=== PATIENT | female | born 1970 | race African-American/Black ===

== ENCOUNTER 2016-07-16 21:19 | Emergency (ER) | payer OTHER ==
[~2016-07-16] VITALS: Ht 170.2 cm; Wt 63.0 kg
[~2016-07-16 21:19] MED LIST: MULT-248 PO; PRED5 PO; QUET200T PO; VITS42.53 TP
[2016-07-16] MEDS ORDERED: QUET300T2 PO (22:03)
[2016-07-16] MEDS ORDERED: AMLO-512 PO (22:03)
[2016-07-16] MEDS ORDERED: HYDR25TA PO (22:03)
[2016-07-16] MEDS ORDERED: HYD50 PO (22:03)
[2016-07-16] MEDS ORDERED: CLON.2 PO (22:03)
[2016-07-16] MEDS ORDERED: ALBU8HFA IH (22:03)
[2016-07-17 00:26] VITALS: BP 118/78
== END 2016-07-17 00:26 | disposition home or self-care (01) ==
LOC: EMS 21:21
DX: L30.9 Dermatitis, unspecified (principal); G89.29 Other chronic pain; I10 Essential (primary) hypertension; F17.210 Nicotine dependence, cigarettes, uncomplicated; F19.90 Other psychoactive substance use, unspecified, uncomplicated; Z88.1 Allergy status to other antibiotic agents; Z88.0 Allergy status to penicillin; Z88.2 Allergy status to sulfonamides; Z88.8 Allergy status to other drugs, medicaments and biological substances
CPT/HCPCS: 99281

== ENCOUNTER 2016-08-05 04:15 | Emergency (ER) | payer OTHER ==
[~2016-08-05] VITALS: Ht 162.6 cm; Wt 54.5 kg
[~2016-08-05 04:15] MED LIST changes: +ALBU8HFA IH; +AMLO-512 PO; +CLON.2 PO; +HYD50 PO; +HYDR25TA PO; +QUET300T2 PO
[2016-08-05 04:22] VITALS: BP 118/65
== END 2016-08-05 05:42 | disposition left against medical advice (07) ==
LOC: EMS 04:17
DX: Z00.8 Encounter for other general examination (principal); J45.909 Unspecified asthma, uncomplicated; I10 Essential (primary) hypertension; F17.210 Nicotine dependence, cigarettes, uncomplicated; F19.90 Other psychoactive substance use, unspecified, uncomplicated; Z53.21 Procedure and treatment not carried out due to patient leaving prior to being seen by health care provider

== ENCOUNTER 2017-01-04 23:02 | Emergency (ER) | payer OTHER | END 2017-01-05 00:03 | disposition left against medical advice (07) | LOC: EMS 23:03 | DX: M79.89 Other specified soft tissue disorders (principal); Z53.21 Procedure and treatment not carried out due to patient leaving prior to being seen by health care provider ==

== ENCOUNTER 2017-01-05 00:25 | Emergency (ER) | payer OTHER ==
[~2017-01-05] VITALS: Ht 170.2 cm; Wt 50.0 kg
[2017-01-05] MEDS ORDERED: DOXYCYCLINE 100 MG CAPSULE PO ONE (05:00)
[2017-01-05] MEDS ORDERED: HYDROmorphone 2 MG/ML SYRINGE IM ONE (05:00)
[2017-01-05] MEDS ORDERED: ONDANSETRON HCL 4 MG/2 ML VIAL IM ONE (05:00)
[2017-01-05] MEDS ORDERED: BUPIVACAINE HCL/PF 0.25% 30 ML VIAL INJ ONE (05:00)
[2017-01-05] MEDS ORDERED: AmLODIPine BESYLATE 5 MG TABLET PO ONE (05:00)
[2017-01-05 06:19] VITALS: BP 149/84
== END 2017-01-05 06:26 | disposition home or self-care (01) ==
LOC: EMS 00:27
DX: L02.31 Cutaneous abscess of buttock (principal); I10 Essential (primary) hypertension; J45.909 Unspecified asthma, uncomplicated; F17.210 Nicotine dependence, cigarettes, uncomplicated; F19.90 Other psychoactive substance use, unspecified, uncomplicated; Z88.0 Allergy status to penicillin; Z88.2 Allergy status to sulfonamides; Z88.1 Allergy status to other antibiotic agents; Z88.8 Allergy status to other drugs, medicaments and biological substances
CPT/HCPCS: 10060; 87070; 87077; 87147; 87186; 87205; 96372; 99284; 99406; J1170; J2405; J3490

== ENCOUNTER 2017-02-01 06:46 | Emergency (ER) | payer OTHER ==
[~2017-02-01] VITALS: Ht 165.1 cm; Wt 61.4 kg
[2017-02-01] MEDS ORDERED: DOXYCYCLINE 100 MG CAPSULE PO ONE (07:15)
[2017-02-01 07:44] VITALS: BP 128/82
== END 2017-02-01 08:32 | disposition home or self-care (01) ==
LOC: EMS 06:48
DX: R10.9 Unspecified abdominal pain (principal); R21 Rash and other nonspecific skin eruption; F17.210 Nicotine dependence, cigarettes, uncomplicated; F15.10 Other stimulant abuse, uncomplicated; M32.9 Systemic lupus erythematosus, unspecified; I10 Essential (primary) hypertension; J45.909 Unspecified asthma, uncomplicated; M19.90 Unspecified osteoarthritis, unspecified site; F10.20 Alcohol dependence, uncomplicated; Z59.0 Homelessness; Z88.8 Allergy status to other drugs, medicaments and biological substances; Z88.0 Allergy status to penicillin; Z88.2 Allergy status to sulfonamides; Z88.1 Allergy status to other antibiotic agents; Z91.041 Radiographic dye allergy status
CPT/HCPCS: 99284

== ENCOUNTER 2017-02-11 11:44 | Emergency (ER) | payer OTHER ==
[~2017-02-11] VITALS: Ht 167.6 cm; Wt 52.0 kg
[2017-02-11] MEDS ORDERED: MUPIROCIN CALCIUM 2% 15 GM CREAM TP ONE (12:30)
[2017-02-11 13:23] VITALS: BP 106/74
== END 2017-02-11 13:40 | disposition home or self-care (01) ==
LOC: EMS 11:45
DX: L02.31 Cutaneous abscess of buttock (principal); J45.909 Unspecified asthma, uncomplicated; I10 Essential (primary) hypertension; F17.210 Nicotine dependence, cigarettes, uncomplicated; F19.90 Other psychoactive substance use, unspecified, uncomplicated; Z88.1 Allergy status to other antibiotic agents; Z88.0 Allergy status to penicillin; Z88.2 Allergy status to sulfonamides; Z88.8 Allergy status to other drugs, medicaments and biological substances
CPT/HCPCS: 99283

== ENCOUNTER 2017-02-26 00:27 | Emergency (ER) | payer OTHER ==
[~2017-02-26] VITALS: Ht 165.1 cm; Wt 52.0 kg
[~2017-02-26 00:27] MED LIST changes: -HYDR25TA PO; -QUET200T PO
[2017-02-26] MEDS ORDERED: OxyCODONE HCL/ACETAMINOPHEN 5-325 MG TABLET PO ONE (02:30)
[2017-02-26] MEDS ORDERED: CLINDAMYCIN HCL 150 MG CAPSULE PO ONE (02:30)
[2017-02-26] MEDS: LIDOCAINE HCL 1%/EPI 1:200,000/PF 10 ML VIAL INJ ONE ×2 (04:07→05:17)
[2017-02-26 05:30] VITALS: BP 122/80
== END 2017-02-26 05:58 | disposition home or self-care (01) ==
LOC: EMS 00:28
DX: L02.31 Cutaneous abscess of buttock (principal); J45.909 Unspecified asthma, uncomplicated; I10 Essential (primary) hypertension; F17.210 Nicotine dependence, cigarettes, uncomplicated; F19.90 Other psychoactive substance use, unspecified, uncomplicated; Z88.1 Allergy status to other antibiotic agents; Z88.0 Allergy status to penicillin; Z88.2 Allergy status to sulfonamides; Z88.8 Allergy status to other drugs, medicaments and biological substances
CPT/HCPCS: 99283; 99284; J3490

== ENCOUNTER 2017-03-30 00:43 | Emergency (ER) | payer OTHER ==
[~2017-03-30] VITALS: Ht 170.2 cm; Wt 54.5 kg
[2017-03-30 02:28] LABS: BASOPHILS % (AUTO) 0.3 % (0.0-2.0); EOSINOPHILS % (AUTO) 0.5 % (1.0-6.0); HEMATOCRIT 26.5 % (36-46); LYMPHOCYTES % (AUTO) 18.1 % (22.0-44.0); MEAN CORPUSCULAR HEMOGLOBIN 28.6 pg (26.0-34.0); MEAN CORPUSCULAR VOLUME 84 fL (80-100); MONOCYTES # (AUTO) 0.7 K/uL (0.1-1.0); MONOCYTES % (AUTO) 12.5 % (2.0-9.0); NEUTROPHILS # (AUTO) 3.6 K/uL (1.8-7.7); NEUTROPHILS % (AUTO) 68.6 % (40.0-70.0); PLATELET COUNT (AUTO) 223 K/uL (150-450); RED BLOOD CELL COUNT(AUTO) 3.15 MIL/uL (4.00-5.20); RED CELL DISTRIBUTION WIDTH 16.1 % (11.5-14.5); WHITE BLOOD COUNT (AUTO) 5.3 K/uL (4.5-11.0)
[2017-03-30 02:31] LABS: CREATININE 1.22 mg/dL (0.60-1.30)
[2017-03-30 02:37] LABS: ALBUMIN 3.6 g/dL (3.4-5.0); BILIRUBIN,TOTAL 0.3 mg/dL (0.1-1.0); TOTAL PROTEIN, SERUM 8.7 g/dL (6.4-8.2)
[2017-03-30 02:50] LABS: APPEARANCE,URINE CLEAR (CLEAR); GLUCOSE, URINE (UA) NEGATIVE (NEGATIVE); KETONES,URINE NEGATIVE (NEGATIVE); LEUKOCYTE ESTERASE ,URINE NEGATIVE (NEGATIVE); OCCULT BLOOD,URINE NEGATIVE (NEGATIVE); PROTEIN,URINE POS 1+ (NEGATIVE)
[2017-03-30 02:52] LABS: ADD UA MICROSCOPIC NO
[2017-03-30] MEDS ORDERED: CloNIDine HCL 0.1 MG TABLET PO ONE (03:00)
[2017-03-30] MEDS ORDERED: LORazepam 1 MG TABLET PO ONE (03:00)
[2017-03-30] MEDS ORDERED: QUEtiapine FUMARATE 100 MG TABLET PO ONE (03:00)
[2017-03-30 04:50] VITALS: BP 123/67
== END 2017-03-30 05:07 | disposition home or self-care (01) ==
LOC: EMS 00:46
DX: I10 Essential (primary) hypertension (principal); F25.9 Schizoaffective disorder, unspecified; F15.10 Other stimulant abuse, uncomplicated; D64.9 Anemia, unspecified; L40.9 Psoriasis, unspecified; R51 Headache; R42 Dizziness and giddiness; J45.909 Unspecified asthma, uncomplicated; F17.210 Nicotine dependence, cigarettes, uncomplicated; Z59.0 Homelessness; Z88.0 Allergy status to penicillin; Z88.2 Allergy status to sulfonamides
CPT/HCPCS: 93005; 99285

== ENCOUNTER 2017-04-15 04:17 | Emergency (ER) | payer OTHER ==
[~2017-04-15] VITALS: Ht 172.7 cm; Wt 54.5 kg
[2017-04-15 05:40] VITALS: BP 130/76
[2017-04-15] MEDS ORDERED: ACETAMINOPHEN 325 MG TABLET PO ONE (06:00)
== END 2017-04-15 06:00 | disposition home or self-care (01) ==
LOC: EMS 04:18
DX: Z76.0 Encounter for issue of repeat prescription (principal); I10 Essential (primary) hypertension; J45.909 Unspecified asthma, uncomplicated; F15.90 Other stimulant use, unspecified, uncomplicated; F17.210 Nicotine dependence, cigarettes, uncomplicated; Z88.0 Allergy status to penicillin; Z88.1 Allergy status to other antibiotic agents; Z88.2 Allergy status to sulfonamides; Z88.8 Allergy status to other drugs, medicaments and biological substances; Z59.0 Homelessness
CPT/HCPCS: 99283

== ENCOUNTER 2018-05-28 03:50 | Emergency (ER) | payer OTHER ==
[~2018-05-28] VITALS: Ht 167.6 cm; Wt 56.0 kg
[~2018-05-28 03:50] MED LIST changes: -PRED5 PO
[2018-05-28] MEDS ORDERED: MORP30 PO (04:31)
[2018-05-28 06:10] VITALS: BP 140/76
[2018-05-28] MEDS ORDERED: ONDANSETRON HCL 4 MG TABLET PO ONE (06:30)
[2018-05-28] MEDS ORDERED: BACITRACIN 0.9 GM PACKET OINTMENT TP ONE (06:30)
[2018-05-28] MEDS ORDERED: MORPHINE SULFATE 10 MG/ML SYRINGE IM ONE (06:30)
== END 2018-05-28 07:11 | disposition home or self-care (01) ==
LOC: EMS 03:51
DX: G89.29 Other chronic pain (principal); M54.5 Low back pain; M32.8 Other forms of systemic lupus erythematosus; G56.00 Carpal tunnel syndrome, unspecified upper limb; I10 Essential (primary) hypertension; J45.909 Unspecified asthma, uncomplicated; M19.90 Unspecified osteoarthritis, unspecified site; F15.90 Other stimulant use, unspecified, uncomplicated; F10.20 Alcohol dependence, uncomplicated; F11.20 Opioid dependence, uncomplicated; F17.210 Nicotine dependence, cigarettes, uncomplicated; Z59.0 Homelessness; Z88.0 Allergy status to penicillin; Z88.1 Allergy status to other antibiotic agents; Z88.8 Allergy status to other drugs, medicaments and biological substances; Z88.2 Allergy status to sulfonamides; Z79.899 Other long term (current) drug therapy
CPT/HCPCS: 96372; 99283; J2270; Q0162